=== PATIENT | male | born 1960 | race Caucasian/White ===

== ENCOUNTER → 2017-04-29 | Outpatient (CLI) | payer OTHER ==
--- NOTE | 2017-04-29 17:24 | CONS ---
CONSULTATION DATE OF SERVICE: 04/29/2017 This patient is a 56-year-old gentleman who has been evaluated in the sleep center for obstructive sleep apnea-hypopnea syndrome. HISTORY OF PRESENT ILLNESS/SLEEP-WAKE EVALUATION: Patient's usual sleep schedule is from around 8 p.m. until 6:30 a.m. Sometimes he has problems with falling asleep. He has a TV set in the bedroom. He has loud snoring, witnessed episodes of stopped breathing during the sleep. He wakes up from sleep up to 5 times with up to 5 episodes of nocturia and with sweating, restless legs and grinding teeth. In the morning, patient wakes up tired, worries about his sleep, has problems with memory, concentration, irritability, depression, anxiety, sexual dysfunction. [place] Sleepiness Scale is 5. PAST MEDICAL HISTORY: 1. Hypertension. 2. Back problems. 3. Arthritis. PAST SURGICAL HISTORY: Back surgery. MEDICATIONS: 1. Zestoretic. 2. [place]. 3. Gabapentin. 4. Fish oil. SOCIAL HISTORY: Positive for smoking for about 30 pack/years. At present the patient is trying to decrease the amount of cigarettes. Alcohol consumption occasional. FAMILY HISTORY: Hypertension, arthritis, snoring, sleep apnea, ulcers, acid reflux. REVIEW OF SYSTEMS: Multiple awakenings from sleep. Back pain. Tiredness. Sometimes sleepiness. PHYSICAL EXAM: This is a pleasant 56-year-old gentleman without distress. VITAL SIGNS: BP 118/60, HR 104, RR 16, height 5 feet 7 inches, weight 238, BMI 37.2, neck 18 inches in circumference. Temperature 98.6. Oxygen saturation at room air 97%. HEENT: PERRLA, EOMI. Evaluation of oropharynx showed tongue protrudes midline; extremely low position of soft palate. Mallampati IV. NECK: Supple. No JVD. Thyroid is not palpable. LUNGS: Clear to percussion and to auscultation. Good air exchange. No wheezing or rhonchi. HEART: S1, S2 irregularly irregular. ABDOMEN: Obese. EXTREMITIES: No clubbing or cyanosis. DISTRIBUTOR SALES MANAGER: Awake, alert and oriented x3. Cranial nerves 2 to 7 intact. There is no fasciculation or atrophy noted. No focal deficits observed. IMPRESSION: 1. Snoring, witnessed episodes of stopped breathing during sleep, extremely low position of soft palate; obstructive sleep apnea-hypopnea syndrome. 2. Obesity. 3. Hypertension. 4. Back pain. 5. Status post back surgery. 6. Smoker for about 30 pack/years, trying to decrease amount of cigarettes. PLAN: 1. Polysomnography for evaluation of patient's breathing during sleep. 2. CPAP/BiPAP titration if sleep study confirms obstructive sleep apnea-hypopnea syndrome. 3. Preferable position during sleep on the side. 4. No driving if patient feels any sleepiness. Patient is aware of civil and criminal liability for unsafe driving. 5. I will see patient for follow up visit to explain results of testing and following plan. 6. Smoking cessation program. Thank you very much for referring this patient for consultation. Sincerely, Bal Brink MD, PhD, FAASM Diplomat of [employer] Driving Teacher of [facility] [place] MMODL / BHAVYA: [id number] /
== END ==
LOC: SLEEP 14:10
PROVIDERS: ATTEND Family Medicine
DX: G47.33 Obstructive sleep apnea (adult) (pediatric) (principal); I10 Essential (primary) hypertension; E66.9 Obesity, unspecified; M54.5 Low back pain; Z87.891 Personal history of nicotine dependence; Z98.890 Other specified postprocedural states; Z79.899 Other long term (current) drug therapy
CPT/HCPCS: 99211

== ENCOUNTER → 2017-08-26 | Outpatient (CLI) | payer OTHER ==
--- NOTE | 2017-08-26 11:41 | PN ---
PROGRESS NOTE FOLLOW-UP VISIT DATE OF SERVICE: 08/26/2017 A 57-year-old gentleman has been followed in the sleep center for treatment to obstructive sleep apnea-hypopnea syndrome. Recently patient had polysomnogram and CPAP titration and I discussed results of sleep studies with the patient in details. He has severe sleep apnea and subsequently was started on treatment with CPAP. By results of the sleep studies on CPAP, his breathing is fully normalized. The patient started to use CPAP equipment, but had difficulties with the CPAP because he had bronchitis and pneumonia with some discharges also from his nose and cough and he had difficulties to use the equipment. I checked his CPAP unit. CPAP pressure is 13 cm of water. Ramp is in automatic regimen. Patient sometimes had difficulties with the high pressure when he started to use equipment. Apnea-hypopnea index on the machine in the range of 6, but patient used it very short period of time only 6 out of 30 nights and average usage is only 1.3 hours. [place] Sleepiness Scale today is 2. MEDICATIONS: Zestoretic. [place], gabapentin, fish oil. PHYSICAL EXAM: During physical exam, patient in no distress. VITAL SIGNS: BP 122/75, HR 94, RR 16, weight 237, temp 97.0, oxygen saturation room air 98%. HEENT: PERRLA, EOMI. Oropharynx extremely low position of soft palate. HEENT PERRLA, EOMI, evaluation of oropharynx showed tongue protrudes midline. NECK: Supple, no JVD. Thyroid is not palpable. LUNGS: Clear to percussion and to auscultation. Good air exchange. No wheezing or rhonchi. HEART: S1, S2 regular. No murmurs, gallops, or rubs. ABDOMEN: Obese. EXTREMITIES: No clubbing or cyanosis. FIELD OPERATOR: Awake, alert, and oriented X3. Cranial nerves 2 to 7 intact. There is no fasciculation or atrophy. noted. No focal deficits observed. IMPRESSION: 1. Severe obstructive sleep apnea-hypopnea syndrome. Apnea-hypopnea index 69.6 with oxygen desaturation to 77.4%. The patient was started on treatment with CPAP, but because of recent bronchitis and pneumonia had difficulties to use his CPAP equipment. 2. Obesity. 3. Hypertension. 4. Back pain. 5. Status post back surgery. 6. Smoker for about 30 pack/years. 7. Status post recent bronchitis and pneumonia. PLAN: 1. Patient promised to use CPAP equipment every night for the whole night. 2. Losing weight. 3. Sleep hygiene with regular time in bed for at least 7-1/2 hours. 4. No driving if feeling sleepiness. 5. Consider smoking cessation program:. Thank you very much for allowing me to participate in management of your patient. Sincerely, Bal Brink MD, PhD, FAASM Diplomat of [employer] Sole Rounding Machine Operator of [facility] [place] MMODL / ADENN: [id number] /
== END | disposition home or self-care (01) ==
LOC: SLEEP 10:13
PROVIDERS: ATTEND Internal Medicine
DX: G47.33 Obstructive sleep apnea (adult) (pediatric) (principal); E66.9 Obesity, unspecified; I10 Essential (primary) hypertension; M54.9 Dorsalgia, unspecified; F17.200 Nicotine dependence, unspecified, uncomplicated; Z98.890 Other specified postprocedural states; Z99.89 Dependence on other enabling machines and devices; Z79.899 Other long term (current) drug therapy; Z79.891 Long term (current) use of opiate analgesic

== ENCOUNTER → 2019-11-21 | Outpatient (CLI) | payer MEDICARE ==
--- NOTE | 2019-11-21 08:58 | XR ---
EXAM TYPE: LUMBAR SPINE X RAY SERIES COMPARISON: NONE HISTORY: Pain TECHNIQUE: 3 views are submitted. FINDINGS: Alignment is anatomic. Postoperative changes noted. Vascular calcifications noted. Multilevel hypertr ophic and degenerative changes. No spondylolisthesis. IMPRESSION: 1. Postoperative change. 2. Multilevel hypertrophic and degenerative changes.
== END | disposition home or self-care (01) ==
LOC: RADXRMAIN 08:29
PROVIDERS: ATTEND Family Medicine
DX: M47.816 Spondylosis without myelopathy or radiculopathy, lumbar region (principal); Z98.890 Other specified postprocedural states
CPT/HCPCS: 72100